=== PATIENT | female | born 1975 | race Caucasian/White ===

== ENCOUNTER 2018-03-22 08:58 | Emergency (ER) | payer OTHER | END 2018-03-22 09:58 | disposition home or self-care (01) | LOC: FTE 08:58 | DX: N39.0 Urinary tract infection, site not specified (principal); J30.9 Allergic rhinitis, unspecified | CPT/HCPCS: 81025; 99283 ==

== ENCOUNTER 2019-04-03 19:57 | Emergency (ER) | payer OTHER ==
[2019-04-03 22:30] LABS: URINE PH (Dip) POC 5.5 (5.0-8.5)
[2019-04-03 22:30] LABS: URINE BLOOD (Dip) POC Trace-intact (NEGATIVE); URINE GLUCOSE (Dip) POC Negative (NEGATIVE); URINE KETONES (Dip) POC Negative (NEGATIVE); URINE LEUKOCYTE EST (Dip) POC Trace (NEGATIVE); URINE NITRITE (Dip) POC Positive (NEGATIVE); URINE TOTAL PROTEIN POC Negative (NEGATIVE)
[2019-04-03 22:40] LABS: ADD UMIC YES; UR ASCORBIC ACID NEGATIVE (NEGATIVE); UR BACTERIA FEW /HPF (NONE SEEN); UR BILIRUBIN (Dip) NEGATIVE (NEGATIVE); UR BLOOD (Dip) NEGATIVE (NEGATIVE); UR CLARITY CLEAR (CLEAR); UR COLOR AMBER (YELLOW); UR GLUCOSE (Dip) NEGATIVE (NEGATIVE); UR KETONES (Dip) NEGATIVE (NEGATIVE); UR LEUKOCYTE ESTERASE (Dip) 1+ Leu/ul (NEGATIVE); UR NITRITE (Dip) POSITIVE (NEGATIVE); UR RBC 0 /HPF (0-5); UR SPECIFIC GRAVITY (Dip) 1.004 (1.003-1.030); UR TOTAL PROTEIN (Dip) NEGATIVE (NEGATIVE); UR UROBILINOGEN (Dip) NEGATIVE (NEGATIVE); UR WBC 24 /HPF (0-5)
[2019-04-03] MEDS: KETOROLAC 60 MG INJ IM (23:05)
[2019-04-03] MEDS: CEPHALEXIN 500 MG CAP PO (23:05)
[2019-04-03] MEDS: PHENAZOPYRIDINE 100 MG TAB PO (23:05)
== END 2019-04-03 23:11 | disposition home or self-care (01) ==
LOC: FTE 23:11
DX: N39.0 Urinary tract infection, site not specified (principal)
CPT/HCPCS: 81001; 81003; 81025; 96372; 99284-25